=== PATIENT | female | born 1970 | race Caucasian/White ===

== ENCOUNTER 2020-09-02 07:04 | Day surgery (SDC) | payer MEDICARE ==
[2020-09-02] MEDS ORDERED: Xylocaine 1% Vial 30 ML PF IJ ONE (07:05)
[2020-09-02] MEDS ORDERED: BUPIVACAINE 0.5% VIAL IJ ONE (07:05)
[2020-09-02] MEDS ORDERED: DIPRIVAN 200 MG/20 ML IV ONE (09:18)
[2020-09-02] MEDS ORDERED: Ketamine HCl 50 MG/ML ONE (09:18)
[2020-09-02] MEDS ORDERED: TRANDATE 20 MG/4 ML SYRINGE IV ONE (09:24)
--- NOTE | 2020-09-02 11:19 | XRAY ---
43 seconds fluoroscopy time in surgery for ganglian impar nerve block.
--- NOTE | 2020-09-02 11:27 | XRAY ---
Indication: Ganglion injection. Intraoperative fluoroscopy was provided for 43 seconds. Single lateral digital spot image submitted for interpretation demonstrates posterior needle tip projecting just anterior to sacrococcygeal junction. Small amount of contrast injected for needle tip placement. Correlate with intraoperative findings/report.
[2020-09-02] MEDS ORDERED: Lactated Ringers 1,000 ML IV ONE (15:41)
== END 2020-09-02 09:54 | disposition home or self-care (01) ==
LOC: SDC-PAIN 07:04
PROVIDERS: ATTEND Psychiatry & Neurology Pain Medicine
DX: M53.3 Sacrococcygeal disorders, not elsewhere classified (principal); E11.9 Type 2 diabetes mellitus without complications; I10 Essential (primary) hypertension; G47.30 Sleep apnea, unspecified; F31.9 Bipolar disorder, unspecified; J84.9 Interstitial pulmonary disease, unspecified; Z79.899 Other long term (current) drug therapy
CPT/HCPCS: 64520; 72220; 77002; 80307; 81002; 82570; 82947; 82962; 83986; 84703; J2001; J2704; Q9966

== ENCOUNTER 2020-11-18 09:48 | Day surgery (SDC) | payer MEDICARE ==
[2020-11-18] MEDS ORDERED: Sensorcaine 0.25% 10 ML IJ ONE (09:49)
[2020-11-18] MEDS ORDERED: Xylocaine 1% Vial 30 ML PF IJ ONE (09:49)
[2020-11-18] MEDS ORDERED: Ketamine HCl 50 MG/ML ONE (11:53)
[2020-11-18] MEDS ORDERED: DIPRIVAN 200 MG/20 ML IV ONE (11:53)
--- NOTE | 2020-11-18 13:06 | XRAY ---
Indication: Right lumbar sympathetic nerve block. Intraoperative fluoroscopy was provided for 49 seconds. 2 digital spot images submitted for interpretation demonstrates a right posterior needle tip projecting just anterior to a mid lumbar segment, probably L3. Small amount of contrast injected for needle tip placement. Correlate with intraoperative findings/report.
--- NOTE | 2020-11-18 13:07 | XRAY ---
49 seconds fluoroscopy time in surgery for right sympathetic nerve block.
[2020-11-18] MEDS ORDERED: Lactated Ringers 1,000 ML IV ONE (14:38)
== END 2020-11-18 12:30 | disposition home or self-care (01) ==
LOC: SDC-PAIN 09:48
PROVIDERS: ATTEND Psychiatry & Neurology Pain Medicine
DX: M79.18 Myalgia, other site (principal); I10 Essential (primary) hypertension; E11.9 Type 2 diabetes mellitus without complications; J84.9 Interstitial pulmonary disease, unspecified; G47.30 Sleep apnea, unspecified; K76.0 Fatty (change of) liver, not elsewhere classified; Z79.899 Other long term (current) drug therapy; F31.9 Bipolar disorder, unspecified
CPT/HCPCS: 64520; 72100; 77002; 82947; 84703; J2001; J2704; Q9966

== ENCOUNTER 2021-06-02 10:40 | Day surgery (SDC) | payer MEDICARE ==
[2021-06-02] MEDS ORDERED: Marcaine Mpf 0.5% Vial 30 Ml IJ ONE (10:41)
[2021-06-02] MEDS ORDERED: Depo-Medrol 40 MG/ML IM ONE (10:41)
[2021-06-02] MEDS ORDERED: DIPRIVAN 200 MG/20 ML IV ONE (11:50)
[2021-06-02] MEDS ORDERED: Ketamine HCl 50 MG/ML ONE (11:55)
[2021-06-02] MEDS ORDERED: Lactated Ringers 1,000 ML IV ONE (13:48)
--- NOTE | 2021-06-02 17:10 | XRAY ---
15 seconds of fluoroscopy was used in surgery for an injection of the greater trochanter bursa of the right hip.
--- NOTE | 2021-06-04 09:27 | XRAY ---
Indication: Right greater trochanteric bursa injection. Intraoperative fluoroscopy was provided for 15 seconds. A single digital spot image submitted for interpretation demonstrates a needle tip at the lateral margin of the greater trochanter. Some contrast has been injected for needle tip placement. Correlate with intraoperative findings/report.
== END 2021-06-02 12:15 | disposition home or self-care (01) ==
LOC: SDC-PAIN 10:40
PROVIDERS: ATTEND Psychiatry & Neurology Pain Medicine
DX: M70.61 Trochanteric bursitis, right hip (principal); E11.9 Type 2 diabetes mellitus without complications; Z79.899 Other long term (current) drug therapy
CPT/HCPCS: 20610; 73501; 77002; 82947; 84703; J1030; J2704; Q9966

== ENCOUNTER 2022-02-03 08:37 | Day surgery (SDC) | payer MEDICARE ==
[2022-02-03] MEDS ORDERED: Depo-Medrol 40 MG/ML IM ONE (08:38)
[2022-02-03] MEDS ORDERED: BUPIVACAINE 0.5% VIAL IJ ONE (08:38)
[2022-02-03] MEDS ORDERED: DIPRIVAN 200 MG/20 ML IV ONE (09:58)
[2022-02-03] MEDS ORDERED: Lactated Ringers 1,000 ML IV ONE (10:08)
--- NOTE | 2022-02-03 12:02 | XRAY ---
Indication: Right shoulder injection Intraoperative fluoroscopy provided for 16 seconds. 2 digital spot image submitted for interpretation demonstrates needle tip projecting over the right glenohumeral joint superiorly. Second needle tip is subacromial. Small amount of contrast injected for both needle tip placement. Correlate with intraoperative findings/report.
--- NOTE | 2022-02-03 12:12 | XRAY ---
16 seconds fluoroscopy time in surgery for intra-articular and sub acromial injections of the right shoulder.
== END 2022-02-03 10:25 | disposition home or self-care (01) ==
LOC: SDC-PAIN 08:37
PROVIDERS: ATTEND Psychiatry & Neurology Pain Medicine
DX: M19.011 Primary osteoarthritis, right shoulder (principal); M75.51 Bursitis of right shoulder; Z79.899 Other long term (current) drug therapy
CPT/HCPCS: 20610; 73030; 77002; 82947; 84703; J1030; J2704; Q9966

== ENCOUNTER 2023-03-22 08:54 | Day surgery (SDC) | payer MEDICARE ==
[2023-03-22] MEDS ORDERED: Depo-Medrol 40 MG/ML IM ONE (08:55)
[2023-03-22] MEDS ORDERED: BUPIVACAINE 0.5% VIAL IJ ONE (08:55)
[2023-03-22] MEDS ORDERED: LIDOCAINE HCL 1% 50 MG/5 ML VL PF IJ ONE (08:55)
[2023-03-22] MEDS ORDERED: Sensorcaine 0.25% 10 ML IJ ONE (08:55)
[2023-03-22 10:08] LABS: HCG URINE TEST NEGATIVE (NEGATIVE)
[2023-03-22] MEDS ORDERED: DIPRIVAN 200 MG/20 ML IV ONE (11:07)
[2023-03-22] MEDS ORDERED: Ketamine HCl 50 MG/ML ONE (11:11)
[2023-03-22] MEDS ORDERED: Lactated Ringers 1,000 ML IV ONE (14:29)
--- NOTE | 2023-03-22 19:16 | XRAY ---
Indication: Right lumbar sympathetic nerve block. Intraoperative fluoroscopy provided for 38 seconds. 3 digital spot image submitted for interpretation demonstrates right posterior needle tip projecting just anterior to L2 vertebral body. Small amount of contrast injected for needle tip placement. Correlate with intraoperative findings/report.
--- NOTE | 2023-03-22 19:25 | XRAY ---
38 seconds of fluoroscopy was used in surgery for a right lumbar sympathetic nerve block.
== END 2023-03-22 11:50 | disposition home or self-care (01) ==
LOC: SDC-PAIN 08:54
PROVIDERS: ATTEND Psychiatry & Neurology Pain Medicine
DX: G90.521 Complex regional pain syndrome I of right lower limb (principal); Z79.899 Other long term (current) drug therapy
CPT/HCPCS: 20610; 64520; 72100; 77002; 81025; 82947; J1030; J2001; J2704; Q9966

== ENCOUNTER 2023-05-03 08:59 | Day surgery (SDC) | payer MEDICARE, SELFPAY ==
[2023-05-03] MEDS ORDERED: BUPIVACAINE 0.5% VIAL IJ ONE (09:00)
[2023-05-03] MEDS ORDERED: Sensorcaine 0.25% 10 ML IJ ONE (09:00)
[2023-05-03] MEDS ORDERED: Depo-Medrol 40 MG/ML IM ONE (09:00)
[2023-05-03] MEDS ORDERED: LIDOCAINE HCL 1% 50 MG/5 ML VL PF IJ ONE (09:00)
[2023-05-03 09:32] LABS: HCG URINE TEST NEGATIVE (NEGATIVE)
[2023-05-03] MEDS ORDERED: DIPRIVAN 200 MG/20 ML IV ONE ×2 (09:50→10:03)
[2023-05-03] MEDS ORDERED: Xylocaine-Mpf 2% 5 Ml Vial ONE (09:55)
--- NOTE | 2023-05-03 13:21 | XRAY ---
Indication: Left lumbar sympathetic nerve block. Intraoperative fluoroscopy provided for 1 minute 2 seconds. 3 digital spot image submitted for interpretation demonstrates left posterior needle tip projecting just anterior to L2 vertebral body. Small amount of contrast was injected for needle tip placement. Correlate with intraoperative findings/report.
--- NOTE | 2023-05-03 13:23 | XRAY ---
One minute 2 seconds of fluoroscopy was used in surgery for a left lumbar sympathetic nerve block.
[2023-05-03] MEDS ORDERED: Lactated Ringers 1,000 ML IV ONE (13:35)
== END 2023-05-03 10:29 | disposition home or self-care (01) ==
LOC: SDC-PAIN 08:59
PROVIDERS: ATTEND Psychiatry & Neurology Pain Medicine
DX: G90.522 Complex regional pain syndrome I of left lower limb (principal); E11.9 Type 2 diabetes mellitus without complications; Z79.899 Other long term (current) drug therapy
CPT/HCPCS: 20610; 64520; 72100; 77002; 81025; 82947; J1030; J2001; J2704; Q9966

== ENCOUNTER 2023-11-22 09:38 | Day surgery (SDC) | payer MEDICARE ==
[2023-11-22] MEDS ORDERED: LIDOCAINE HCL 2% 100 MG/5 ML IJ ONE (09:39)
[2023-11-22 10:05] LABS: HCG URINE TEST NEGATIVE (NEGATIVE)
[2023-11-22] MEDS ORDERED: Xylocaine-Mpf 2% 5 Ml Vial ONE (11:39)
[2023-11-22] MEDS ORDERED: DIPRIVAN 200 MG/20 ML IV ONE (11:39)
--- NOTE | 2023-11-22 13:06 | XRAY ---
Indication: Bilateral L4-S1 MBB. Intraoperative fluoroscopy provided for 24 seconds. Single digital spot image submitted for interpretation demonstrates posterior needle tips projecting over the expected left and right L4-S1 nerve roots. Correlate with intraoperative findings/report.
[2023-11-22] MEDS ORDERED: Lactated Ringers 1,000 ML IV ONE (13:39)
--- NOTE | 2023-11-22 13:46 | XRAY ---
24 seconds of fluoroscopy was used in surgery for a bilateral L4-S1 MBB.
== END 2023-11-22 12:15 | disposition home or self-care (01) ==
LOC: SDC-PAIN 09:38
PROVIDERS: ATTEND Psychiatry & Neurology Pain Medicine
DX: M47.816 Spondylosis without myelopathy or radiculopathy, lumbar region (principal); E11.9 Type 2 diabetes mellitus without complications
CPT/HCPCS: 64493; 64494; 72020; 77002; 81025; 82947; 93005; J2704